=== PATIENT | male | born 1965 ===

== ENCOUNTER 2017-04-19 17:56 | Emergency (ER) | payer BC ==
[2017-04-19] MEDS ORDERED: Aspirin 81 MG Tab.Chew PO ONE (18:09)
--- NOTE | 2017-04-19 18:36 | EDM.PDOC ---
ED HPI GENERAL MEDICAL PROBLEM - General Stated Complaint: lightheaded Time Seen by Provider: 04/19/17 18:00 Source of Information: Reports: Patient History Limitations: Reports: No Limitations - History of Present Illness INITIAL COMMENTS - FREE TEXT/NARRATIVE: This is a 51yo M here for recent feeling of lightheadedness and feeling a fullness and decreased hearing. He felt like he was about to pass out. Patient states he felt like this a few times before and the initial time he felt this was was when he had a CABG done. He has had two prior episodes and both were worked up with negative heart findings. He was traveling from the [employer] here for a fishing trip. He got out of the car and within minutes felt this way. He sat down and it improved over 10-15 minutes. Onset: Sudden Duration: Minutes:, Resolved Prior to Arrival Location: Reports: Generalized Severity: Moderate Improves with: Reports: None Worsens with: Reports: None - Related Data Allergies Allergy/AdvReac Type Severity Reaction Status Date / Time Penicillins Allergy Rash Verified 04/19/17 18:25 Home Meds: Home Meds Potassium Chloride [Klor-Con] 25 meq PO DAILY 04/19/17 [History] Simvastatin [Zocor] 80 mg PO DAILY 04/19/17 [History] amLODIPine [Norvasc] 2.5 mg PO DAILY 04/19/17 [History] Past Medical History HEENT History: Reports: Impaired Vision Cardiovascular History: Reports: Bypass, Hypertension Social & Family History - Family History Family Medical History: Noncontributory ED ROS GENERAL - Review of Systems Review Of Systems: ROS reveals no pertinent complaints other than HPI. ED EXAM, GENERAL - Physical Exam Exam: See Below Exam Limited By: No Limitations General Appearance: Alert, WD/WN, No Apparent Distress Eye Exam: Bilateral Eye: EOMI, PERRL Ears: Normal External Exam Nose: Normal Inspection Throat/Mouth: Normal Inspection Head: Atraumatic, Normocephalic Neck: Normal Inspection, Supple, Non-Tender, Full Range of Motion Respiratory/Chest: No Respiratory Distress, Lungs Clear, Normal Breath Sounds Cardiovascular: Normal Peripheral Pulses, Regular Rate, Rhythm Peripheral Pulses: 2+: Dorsalis Pedis (L), Dorsalis Pedis (R) GI/Abdominal: Normal Bowel Sounds Back Exam: Normal Inspection Extremities: Normal Inspection, Normal Range of Motion Neurological: Alert, Oriented, CN II-XII Intact Psychiatric: Normal Affect, Normal Mood Skin Exam: Warm, Dry, Intact EKG INTERPRETATION Rhythm: NSR [place]: Normal P-Wave: Present QRS: Normal ST-T: Normal QT: Normal Comparison: NA - No Prior EKG Course - Vital Signs Last Recorded V/S: Last Vital Signs Temp 37.0 C 04/19/17 17:56 Pulse 72 04/19/17 17:56 Resp 12 04/19/17 17:56 BP 169/86 H 04/19/17 17:56 Pulse Ox 100 04/19/17 17:56 - Orders/Labs/Meds Orders: Active Orders 24 hr Category Date Time Status EKG Documentation Completion [RC] ASDIRECTED Care 04/19/17 18:09 Active Labs: Laboratory Tests 04/19/17 04/19/17 04/19/17 Range/Units 18:10 18:10 18:10 WBC 10.8 (4.0-11.0) K/uL RBC 4.96 (4.50-6.50) M/uL Hgb 14.8 (13.0-18.0) g/dL Hct 42.5 (40.0-54.0) % MCV 86 (76-96) fL MCH 29.8 (27.0-32.0) pg MCHC 34.8 (31.0-35.0) g/dL RDW 13.1 (11.0-16.0) % Plt Count 188 (150-400) K/uL MPV 9.8 (6.0-10.0) fL Neut % (Auto) 80.3 H (45.0-70.0) % Lymph % (Auto) 12.6 L (20.0-40.0) % Cobb % (Auto) 6.9 (3.0-10.0) % Eos % (Auto) 0.1 L (1.0-5.0) % Baso % (Auto) 0.1 (0.0-0.5) % Neut # (Auto) 8.70 H (2.00-7.50) K/uL Lymph # (Auto) 1.36 L (1.50-4.00) K/uL Cobb # (Auto) 0.75 (0.20-0.80) K/uL Eos # (Auto) 0.01 L (0.04-0.40) K/uL Baso # (Auto) 0.01 L (0.02-0.10) K/uL D-Dimer, Quantitative 231 (0-400) ng/mL Sodium 141 (136-145) mmol/L Potassium 3.6 (3.5-5.1) mmol/L Chloride 104 (98-107) mmol/L Carbon Dioxide 28.0 (21.0-32.0) mmol/L Anion Gap 12.6 (5.0-15.0) mmol/L BUN 12 (8-26) mg/dL Creatinine 0.89 (0.70-1.30) mg/dL Est Cr Clr Drug Dosing TNP Estimated GFR (MDRD) > 60 (>60) MLS/MIN BUN/Creatinine Ratio 13.5 (6-25) Glucose 90 (74-100) mg/dL Calcium 9.5 (8.5-10.1) mg/dL Troponin I < 0.017 (0.000-0.060) ng/mL TSH, Ultra Sensitive 0.761 (0.358-3.740) uIU/mL Meds: Medications Discontinued Medications Generic Name Dose Route Start Last Admin Trade Name Freq PRN Reason Stop Dose Admin Aspirin 324 mg 04/19/17 18:09 Aspirin PO 04/19/17 18:10 ONETIME ONE Departure - Departure Time of Disposition: 19:30 Disposition: Home, Self-Care 01 Condition: Good Clinical Impression: Light-headedness Instructions: Heart Murmur Referrals: PCP,None [Primary Care Provider] - Forms: ED Department Discharge Additional Instructions: Follow up with hand i blocker for heart murmur. Stay well hydrated. - Problem List Review Problem List Initiated/Reviewed/Updated: Yes - My Orders Last 24 Hours: My Active Orders 04/19/17 18:09 EKG Documentation Completion [RC] ASDIRECTED - Assessment/Plan Last 24 Hours: My Active Orders 04/19/17 18:09 EKG Documentation Completion [RC] ASDIRECTED Plan: Discussed symptoms and possibly due to long distance driving and relaxation of vessels of the legs causing pooling of blood. Patient counseled on follow up for systolic murmur of the heart. F/u with PCP and cardiology as needed for further workup including Echo and Stress and possible further management. Patient agrees with rest and relaxation until he follows up with his providers. Discussed lab results and results to be printed for patient.
== END 2017-04-19 18:55 | disposition home or self-care (01) ==
LOC: LB.ED 17:56
DX: R42 Dizziness and giddiness (principal); I10 Essential (primary) hypertension; Z95.1 Presence of aortocoronary bypass graft; Z79.899 Other long term (current) drug therapy; Z88.0 Allergy status to penicillin
CPT/HCPCS: 36415; 80048; 84443; 84484; 85025; 85379; 93005; 99284-25